=== PATIENT | male | born 1985 | race African-American/Black ===

== ENCOUNTER 2022-07-11 17:27 | Emergency (ER) | payer SELFPAY ==
[2022-07-11] MEDS ORDERED: Dexamethasone 4 mg/ml Vial ONE (19:11)
[2022-07-11] MEDS ORDERED: Ketorolac Tromethamine 30 MG/ML VIAL ONE (19:11)
[2022-07-11 19:14] LABS: Bilirubin Neg (Negative); Blood, Urine Negative (Negative); Clarity Clear (Clear); Glucose, Urine (Dipstick) 250 mg/dL (Negative); Ketone, Urine 5 mg/dL (Negative); Leukocyte Negative (Negative); Nitrite Negative (Negative); Protein, Urine (Dipstick) 15 mg/dl (Neg-Trace)
== END 2022-07-11 22:22 | disposition home or self-care (01) ==
LOC: CSHERS 17:27
DX: M54.32 Sciatica, left side (principal); I10 Essential (primary) hypertension
CPT/HCPCS: 72131; 72192; 81003; 96372; J1100; J1885

== ENCOUNTER 2023-05-07 08:00 | Emergency (ER) | payer BC | END 2023-05-07 08:20 | disposition home or self-care (01) | LOC: CSHERS 08:00 | DX: L73.9 Follicular disorder, unspecified (principal); I10 Essential (primary) hypertension | CPT/HCPCS: 99282 ==